=== PATIENT | male | born 1935 | race Caucasian/White ===

== ENCOUNTER 2017-01-08 08:08 | Outpatient (CLI) | payer MEDICARE | END 2017-01-08 08:09 | disposition home or self-care (01) | DX: E11.9 Type 2 diabetes mellitus without complications (principal) ==

== ENCOUNTER 2017-05-28 08:17 | Outpatient (CLI) | payer MEDICARE ==
[2017-05-28 10:44] LABS: ALBUMIN/GLOBULIN RATIO 1.6 (1.0-2.2); BILIRUBIN,TOTAL 0.4 mg/dL (0.2-1.0); BUN - BLOOD UREA NITROGEN 27 mg/dL (6-20); CALCIUM 9.4 mg/dL (8.5-10.3); CARBON DIOXIDE - CO2 26 mmol/L (21-32); CHLORIDE 105 mmol/L (101-111); CHOL/HDL RATIO 5.6 (<5.0); CHOLESTEROL 112 mg/dL; CREATININE 1.3 mg/dL (0.6-1.2); GFR - MDRD 53 (>89); GLUCOSE 116 mg/dL (70-100); HDL CHOLESTEROL 20 mg/dL; LDL/HDL RATIO 2.9 (<3.6); POTASSIUM 4.8 mmol/L (3.5-5.0); SODIUM 137 mmol/L (135-145); TOTAL PROTEIN 6.9 g/dL (6.7-8.2); TRIGLYCERIDES 168 mg/dL; VLDL CHOLESTEROL 34 mg/dL
[2017-05-28 10:53] LABS: HEMOGLOBIN A1C 0.65 g/dL
[2017-05-28 10:56] LABS: PSA FREE < 0.005 ng/mL (0.16-2.81); PSA TOTAL < 0.008 ng/mL (0.000-2.000)
== END 2017-05-28 08:18 | disposition home or self-care (01) ==
LOC: LAB.F 08:17
PROVIDERS: ATTEND Family Medicine
DX: I12.9 Hypertensive chronic kidney disease with stage 1 through stage 4 chronic kidney disease, or unspecified chronic kidney disease (principal); N18.9 Chronic kidney disease, unspecified; I25.10 Atherosclerotic heart disease of native coronary artery without angina pectoris; E11.9 Type 2 diabetes mellitus without complications; E78.5 Hyperlipidemia, unspecified
CPT/HCPCS: 36415; 80053; 80061; 82043; 83036; 84154

== ENCOUNTER 2018-03-20 08:25 | Outpatient (CLI) | payer MEDICARE ==
[2018-03-20 11:13] LABS: ALBUMIN 4.2 g/dL (3.2-5.5); ALBUMIN/GLOBULIN RATIO 1.6 (1.0-2.2); ALKALINE PHOSPHATASE 44 IU/L (42-121); ALT ALANINE AMINOTRANSFERASE 22 IU/L (10-60); AST ASPARTATE AMINOTRANSFERASE 27 IU/L (10-42); BILIRUBIN,TOTAL 0.8 mg/dL (0.2-1.0); BUN - BLOOD UREA NITROGEN 23 mg/dL (6-20); CALCIUM 9.2 mg/dL (8.5-10.3); CARBON DIOXIDE - CO2 27 mmol/L (21-32); CHLORIDE 104 mmol/L (101-111); CHOL/HDL RATIO 5.2 (<5.0); CHOLESTEROL 104 mg/dL; CREATININE 1.2 mg/dL (0.6-1.2); GFR - MDRD 58 (>89); GLUCOSE 112 mg/dL (70-100); HDL CHOLESTEROL 20 mg/dL; LDL CHOLESTEROL,CALCULATED 55 mg/dL; LDL/HDL RATIO 2.8 (<3.6); SODIUM 138 mmol/L (135-145); TOTAL PROTEIN 6.9 g/dL (6.7-8.2); VLDL CHOLESTEROL 29 mg/dL
[2018-03-20 11:22] LABS: HEMOGLOBIN A1C 0.69 g/dL; HEMOGLOBIN A1C % 6.4 % (4.6-6.2)
== END 2018-03-20 08:26 | disposition home or self-care (01) ==
LOC: LAB.F 08:25
PROVIDERS: ATTEND Family Medicine
DX: N18.9 Chronic kidney disease, unspecified (principal); R97.20 Elevated prostate specific antigen [PSA]; I25.10 Atherosclerotic heart disease of native coronary artery without angina pectoris; E11.9 Type 2 diabetes mellitus without complications; I12.9 Hypertensive chronic kidney disease with stage 1 through stage 4 chronic kidney disease, or unspecified chronic kidney disease; E78.5 Hyperlipidemia, unspecified
CPT/HCPCS: 36415; 80053; 80061; 83036; 83721

== ENCOUNTER 2020-06-27 17:17 | Emergency (ER) | payer MEDICARE ==
[2020-06-27] MEDS ORDERED: BACITRACIN ZINC OINT 1 PACKET TOP STA (18:11)
[2020-06-27] MEDS ORDERED: TETANUS/DIPHTHERIA/PERTUSSIS 0.5 ML SYRINGE IM ONE (18:11)
--- NOTE | 2020-06-27 18:13 | ED Physician Documentation ---
PD HPI HEAD INJURY - Stated complaint Stated Complaint: HEAD LAC - Chief complaint Chief Complaint: Wound - History obtained from History obtained from: Patient, Family - History of Present Illness Mechanism of head injury: Blow (hit in the head by an apple tree branch while mowing today.) Where head injury occurred: Home Timing - onset: How many hours ago (1) Pain level max: 1 Pain level now: 1 Location of injury: Top Quality of pain: Pain Associated symptoms: No: LOC, AMS, Amnesia, Nausea / vomiting, Neck pain, Paresthesias, Seizures, Ear drainage, Nasal drainage Symptoms improve with: Rest Symptoms worsen with: Palpation Contributing factors: No: Anticoagulated, Intoxicated Recently seen: Not recently seen - Additional information Additional information: unknown last Td. Review of Systems Constitutional: denies: Fever, Chills Respiratory: denies: Cough GI: denies: Abdominal Pain, Nausea, Vomiting, Diarrhea Musculoskeletal: denies: Neck pain, Back pain Neurologic: denies: Headache PD PAST MEDICAL HISTORY - Past Medical History Cardiovascular: Hypertension, High cholesterol - Allergies Allergies/Adverse Reactions: Allergies Allergy/AdvReac Type Severity Reaction Status Date / Time No Known Drug Allergies Allergy Verified 06/27/20 17:29 - Social History Does the pt smoke?: No Smoking Status: Never smoker Does the pt drink ETOH?: No Does the pt have substance abuse?: No - Immunizations Immunizations are current?: No - POLST Patient has POLST: No PD ED PE NORMAL - Vitals Vital signs reviewed: Yes - General General: Alert and oriented X 3, No acute distress, Well developed/nourished - HEENT HEENT: PERRL, EOMI, Moist mucous membranes, Other (3 cm, curved scalp laceratio n, left frontal portion of the scalp) - Neck Neck: Supple, no meningeal sign, No bony TTP - Cardiac Cardiac: RRR - Respiratory Respiratory: No respiratory distress, Clear bilaterally - Back Back: No spinal TTP - Extremities Extremities: No deformity, Normal ROM s pain - Neuro Neuro: Alert and oriented X 3, lock 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, No motor deficit, No sensory deficit, Normal speech Eye Opening: Spontaneous Motor: Obeys Commands Verbal: Oriented GCS Score: 15 Results - Vitals Vitals: Vital Signs - 24 hr 06/27/20 06/27/20 17:22 18:21 Temperature 36.9 C 36.9 C Heart Rate 64 65 Respiratory 18 16 Rate Blood Pressure 155/75 H 142/78 H O2 Saturation 96 98 Oxygen O2 Source Room air Procedures - Laceration (location) Scalp Length in cm: 3 Wound type: Curved, Superficial Neurovascular status: Sensory intact, Motor intact, Vascular intact Wound Preparation: Irrigated copiously NS Skin layer closure: Jyoti Other: Patient tolerated well, No complications, Neurovascular intact Complexity: Simple, Complex (tdap) PD MEDICAL DECISION MAKING - ED course Complexity details: considered differential, d/w patient ED course: 84-year-old male with a scalp laceration. Repaired with jyoti. Tolerated well. Tdap given. No evidence of intracranial hemorrhage or skull fracture. Not on blood thinners. Warnings of infection and instructions on wound care giv en at bedside. Also counseled on how to minimize scarring. Patient and family counseled regarding signs and symptoms for which I believe and urgent re- evaluation would be necessary. Patient with good understanding of and agreement to plan and is comfortable going home at this time This document was made in part using voice recognition software. While efforts are made to proofread this document, sound alike and grammatical errors may occur. Departure - Departure Disposition: 01 Home, Self Care Clinical Impression: Scalp laceration Qualifiers: Encounter type: initial encounter Qualified Code(s): S01.01XA - Laceration without foreign body of scalp, initial encounter Condition: Good Instructions: ED Laceration Scalp Stitch Or Stap Follow-Up: KRISTIE GAINES MD [Primary Care Provider] - (in 10-14 days for staple removal.) Comments: Keep the wound clean. The jyoti should be removed in approximately 10 to 14 days with your doctor. Return sooner if you notice redness, swelling or drainage from the wound. You were given a tdap today. Discharge Date/Time: 06/27/20 18:22
[2020-06-27 18:22] VITALS: BP 142/78
== END 2020-06-27 18:22 | disposition home or self-care (01) ==
LOC: ED 17:17
DX: S01.01XA Laceration without foreign body of scalp, initial encounter (principal); W22.09XA Striking against other stationary object, initial encounter; Y93.H2 Activity, gardening and landscaping; Y92.007 Garden or yard of unspecified non-institutional (private) residence as the place of occurrence of the external cause; Z23 Encounter for immunization; I10 Essential (primary) hypertension
CPT/HCPCS: 12002; 90471; 90715; 99282; 99283; A9270

== ENCOUNTER 2021-02-25 21:20 | Outpatient (CLI) | payer MEDICARE | END 2021-02-25 21:21 | disposition critical access hospital (66) | LOC: EMS 21:20 | DX: R00.0 Tachycardia, unspecified (principal); R42 Dizziness and giddiness; R61 Generalized hyperhidrosis | CPT/HCPCS: A0425; A0429 ==

== ENCOUNTER 2021-02-25 21:40 | Observation (INO) | payer MEDICARE ==
--- NOTE | 2021-02-25 21:56 | ED Physician Documentation ---
PD HPI CHEST PAIN - Stated complaint Stated Complaint: DIZZY, ELEVATED HEART RATE - Chief complaint Chief Complaint: Cardiac - History obtained from History obtained from: Patient, Family, EMS - History of Present Illness Timing - onset: Today Timing - onset during: Light activity (he states he has been feeling a bit weaker and tired since his 2nd COVID vaccine in January. But today noted feeling of lightheadedness with activity. he went out to gather a roll of wire that he had used for fence and states he almost fainted, falling into the electric fence. Not vertigo per se.) Timing - duration: Days (1) Timing - details: Gradual onset, Waxing and waning Quality: Other (he did not have chest symptoms per se. He did feel somewhat short of breath with activity today. [place] lightheaded getting up again this evening, so called EMS and they noted him to be in rapid atrial fib. No history of atrial fib in the past. States remote history of [place]/stent, prior to 2012.). No: Pressure, Tightness Improved by: Rest Worsened by: Position (standing up and activity) Associated symptoms: Shortness of air, Feeling faint / dizzy, Palpitations. No: Diaphoresis, Nausea, General Weakness Recently seen: Not recently seen Review of Systems Constitutional: reports: Myalgias, Fatigue (for few weeks since COVID vaccine.). denies: Fever, Chills Nose: denies: Rhinorrhea / runny nose, Congestion Throat: denies: Sore throat Cardiac: denies: Chest pain / pressure, Pedal edema, Calf pain Respiratory: denies: Cough, Wheezing GI: denies: Abdominal Pain, Nausea, Vomiting, Diarrhea, Bloody / black stool Musculoskeletal: denies: Extremity swelling Neurologic: reports: Near syncope. denies: Focal weakness, Numbness, Syncope, Altered mental status, Headache PD PAST MEDICAL HISTORY - Past Medical History Past Medical History: Yes Cardiovascular: Hypertension, High cholesterol, Coronary artery disease - Past Surgical History Past Surgical History: Yes Ortho: Knee replacement, Other Cardiovascular: Coronary stent, Cardiac catheterization - Present Medications Home Medications: Ambulatory Orders Medication Instructions Recorded Confirmed Fenofibrate,Micronized 134 mg PO DAILY 02/25/21 02/25/21 [Fenofibrate] Lisinopril [Zestril] 20 mg PO DAILY 02/25/21 02/25/21 Simvastatin [Zocor] 40 mg PO HS 02/25/21 02/25/21 amLODIPine [Norvasc] 5 mg PO DAILY 02/25/21 02/25/21 metFORMIN [Glucophage] 500 mg PO DAILY PM 02/25/21 02/25/21 - Allergies Allergies/Adverse Reactions: Allergies Allergy/AdvReac Type Severity Reaction Status Date / Time No Known Drug Allergies Allergy Verified 02/25/21 21:48 - Living Situation Living Situation: reports: With spouse/s.o. Living Arrangement: reports: At home, Other (still very active and does ranching and yard work.) - Social History Does the pt smoke?: No Smoking Status: Never smoker Does the pt drink ETOH?: No Does the pt have substance abuse?: No - Immunizations Immunizations are current?: No - POLST Patient has POLST: No PD ED PE NORMAL - Vitals Vital signs reviewed: Yes - General General: Alert and oriented X 3, No acute distress, Well developed/nourished - HEENT HEENT: Moist mucous membranes, Pharynx benign - Neck Neck: Supple, no meningeal sign, No adenopathy - Cardiac Cardiac: No murmur. No: RRR (irregular and rapid in 130-140 range. No murmur.) - Respiratory Respiratory: Clear bilaterally - Abdomen Abdomen: Soft, Non tender - Derm Derm: Normal color, Warm and dry - Extremities Extremities: No calf tenderness / cord, Other (1+ mild edema in both ankles. Does not go to knees. No calf tenderness. ) - Neuro Neuro: Alert and oriented X 3, No motor deficit, Normal speech Eye Opening: Spontaneous Motor: Obeys Commands Verbal: Oriented GCS Score: 15 Results - Vitals Vitals: Vital Signs - 24 hr 02/25/21 02/25/21 02/25/21 21:45 22:18 22:47 Temperature 36.8 C Heart Rate 126 H 105 H 101 H Respiratory 198 H 22 18 Rate Blood Pressure 131/93 H 141/95 H 136/94 H O2 Saturation 96 97 95 02/25/21 02/25/21 02/25/21 22:52 22:57 23:00 Temperature 36.5 C Heart Rate 106 H 95 97 Respiratory 13 Rate Blood Pressure 148/73 H 147/74 H 135/85 H O2 Saturation 96 02/25/21 23:12 Temperature Heart Rate 98 Respiratory Rate Blood Pressure 132/72 H O2 Saturation Oxygen O2 Source Room air - EKG (time done) 21:42 Rate: Rate (enter#) (123) Rhythm: Atrial fibrillation [place]: Normal QRS: Normal Ischemia: Normal ST segments. No: ST elevation c/w ischemia, ST depression Compare to prior EKG: Old EKG unavailable - Labs Labs: Laboratory Tests 02/25/21 02/25/21 02/25/21 22:21 22:21 22:21 WBC 11.3 H RBC 4.88 Hgb 13.7 L Hct 42.0 MCV 86.1 MCH 28.1 MCHC 32.6 RDW 14.3 Plt Count 275 MPV 11.1 Neut # (Auto) 7.6 H Lymph # (Auto) 1.8 [place] # (Auto) 1.1 H Eos # (Auto) 0.7 Baso # (Auto) 0.1 Absolute Nucleated RBC 0.00 Nucleated RBC % 0.0 Sodium 132 L Potassium 4.3 Chloride 103 Carbon Dioxide 22 Anion Gap 7.0 BUN 21 H Creatinine 1.4 H Estimated GFR (MDRD) 48 L Glucose 208 H Calcium 8.6 Magnesium Total Bilirubin 0.8 AST 17 ALT 16 Alkaline Phosphatase 63 Troponin I High Sens 6.1 B-Natriuretic Peptide Total Protein 6.3 L Albumin 3.9 Globulin 2.4 Albumin/Globulin Ratio 1.6 Lipase 29 02/25/21 02/25/21 22:21 22:21 WBC RBC Hgb Hct MCV MCH MCHC RDW Plt Count MPV Neut # (Auto) Lymph # (Auto) [place] # (Auto) Eos # (Auto) Baso # (Auto) Absolute Nucleated RBC Nucleated RBC % Sodium Potassium Chloride Carbon Dioxide Anion Gap BUN Creatinine Estimated GFR (MDRD) Glucose Calcium Magnesium 1.8 Total Bilirubin AST ALT Alkaline Phosphatase Troponin I High Sens B-Natriuretic Peptide 87 Total Protein Albumin Globulin Albumin/Globulin Ratio Lipase - Rads (name of study) chest xray Radiology: Prelim report reviewed (no acute process), See rad report PD MEDICAL DECISION MAKING - ED course Complexity details: reviewed results, re-evaluated patient (Heart rate is slowed with diltiazem. Blood pressure is adequate. Still in fib. Not feeling lightheaded while on cart. ), considered differential (The patient describes a mixture of lightheadedness versus some slight dizziness as he was standing up in active today. No chest pain or dyspnea. EMS found him to be in rapid A. fib. No known history of A. fib.), d/w patient Departure - Departure Disposition: ED Place in Observation Clinical Impression: Atrial fibrillation with rapid ventricular response, Postural lightheadedness, New onset atrial fibrillation Condition: Stable Record reviewed to determine appropriate education?: Yes
--- OUTSIDE RECORDS SUMMARY | 2021-02-25 21:59 | EXTERNAL MEDICAL SUMMARY RPT | Continuity of Care Document ---
:1935 Demographics Phone Unavailable Preferred Language Unknown Marital Status Unknown Church Affiliation Unknown Race Unknown Ethnic Group Unknown Author Organization [place] Address [address] [phone] Phone Social History date description facility [phone]
[2021-02-25] MEDS ORDERED: SODIUM CHLORIDE 0.9% 1,000 ML IV STA (22:25)
[2021-02-25] MEDS ORDERED: diltiaZEM INJ 5 MG/ML VIAL IVP STA (22:26)
[2021-02-25 22:27] LABS: BASOPHILS # (AUTO) 0.1 10^3/uL (0.0-0.1); BASOPHILS % (AUTO) 0.7 %; EOSINOPHILS # (AUTO) 0.7 10^3/uL (0.0-0.7); EOSINOPHILS % (AUTO) 6.2 %; HGB - HEMOGLOBIN 13.7 g/dL (14.0-18.0); LYMPHOCYTES # (AUTO) 1.8 10^3/uL (1.5-3.5); MEAN CORPUSCULAR HEMOGLOBIN 28.1 pg (27.0-31.0); MEAN CORPUSCULAR HGB CONC 32.6 g/dL (32.0-36.0); MEAN CORPUSCULAR VOLUME 86.1 fL (80.0-94.0); MEAN PLATELET VOLUME 11.1 fL (7.4-11.4); MONOCYTES # (AUTO) 1.1 10^3/uL (0.0-1.0); MONOCYTES % (AUTO) 9.5 %; NEUTROPHILS # (AUTO) 7.6 10^3/uL (1.5-6.6); NEUTROPHILS % (AUTO) 67.1 %; PLT - PLATELET COUNT 275 10^3/uL (130-450); RED BLOOD COUNT 4.88 10^6/uL (4.70-6.10); RED CELL DISTRIBUTION WIDTH 14.3 % (12.0-15.0); WHITE BLOOD COUNT 11.3 x10^3/uL (4.8-10.8)
[2021-02-25] MEDS ORDERED: MECLIZINE 12.5 MG TABLET PO STA (22:27)
[2021-02-25 22:41] LABS: ALBUMIN 3.9 g/dL (3.2-5.5); ALBUMIN/GLOBULIN RATIO 1.6 (1.0-2.2); BILIRUBIN,TOTAL 0.8 mg/dL (0.2-1.0); CALCIUM 8.6 mg/dL (8.5-10.3); CREATININE 1.4 mg/dL (0.6-1.2); POTASSIUM 4.3 mmol/L (3.5-5.0); TOTAL PROTEIN 6.3 g/dL (6.7-8.2)
[2021-02-25] MEDS ORDERED: ACETAMINOPHEN 325 MG TABLET PO PRN (23:30)
[2021-02-25] MEDS ORDERED: oxyCODONE 5 MG TABLET PO PRN (23:30)
[2021-02-25] MEDS ORDERED: SODIUM CHLORIDE FLUSH 0.9% 10 ML SYRINGE IVP PRN (23:30)
[2021-02-25] MEDS ORDERED: diltiaZEM CD 120 MG CAPSULE PO STA (23:33)
[2021-02-25] MEDS ORDERED: NS W/20 MEQ KCL 1,000 ML IV SCH (23:45)
--- OUTSIDE RECORDS SUMMARY | 2021-02-25 23:45 | EXTERNAL MEDICAL SUMMARY RPT | Continuity of Care Document ---
:1935 Demographics Phone Unavailable Preferred Language Unknown Marital Status Unknown Worship Affiliation Unknown Race Unknown Ethnic Group Unknown Author Organization [place] Address [address] [id number] Phone Social History date description facility [phone]
[2021-02-26 00:58] LABS: B. PARAPERTUSSIS- RESP PCR PAN NOT DETECTED; B. PERTUSSIS- RESP PCR PANEL NOT DETECTED; C. PNEUMONIAE- RESP PCR PANEL NOT DETECTED; CORONAVIRUS 229E-RESP PCR NOT DETECTED; CORONAVIRUS HKU1-RESP PCR NOT DETECTED; CORONAVIRUS NL63-RESP PCR NOT DETECTED; CORONAVIRUS OC43-RESP PCR NOT DETECTED; HUMAN METAPNEUMOVIRUS NOT DETECTED; INFLUENZA A- RESP PCR PANEL NOT DETECTED; INFLUENZA B - RESP PCR PANEL NOT DETECTED; M. PNEUMONIAE- RESP PCR PANEL NOT DETECTED; PARAINFLUENZA VIRUS 1 NOT DETECTED; PARAINFLUENZA VIRUS 2 NOT DETECTED; PARAINFLUENZA VIRUS 3 NOT DETECTED; PARAINFLUENZA VIRUS 4 NOT DETECTED; RHINOVIRUS/ENTEROVIRUS NOT DETECTED; RSV- RESP PCR PANEL NOT DETECTED; SARS-CoV-2 -RESP PCR PANEL NOT DETECTED
--- NOTE | 2021-02-26 00:59 | HISTORY & PHYSICAL EXAMINATION ---
Chief Complaint - Chief Complaint Chief Complaint: Dizziness and light headedness History of Present Illness - Admitted From Admitted From:: Home Via EMS - History Obtained From Records Reviewed: [facility] History obtained from: Patient and Chart Review Exam Limitations: None - History of Present Illness HPI Comment/Other: Pt is a pleasant 85 male who presented the emergency room this evening for light headedness and dizziness. Pt has significant PMH of CAD, STEMI with stent to RCA, CKD stage II, BPH w prostate cancer s/p TURP. Rodolfo tells me after receiving his second COVID vaccine dose two weeks ago he began to have increase generalized weakness and fatigue. This morning he awoke to multiple episodes of dizziness and light headedness with the room spinning. 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 After discussion with his roommate Ivette Isaac and her grandson who is a medic in [place] she called EMS for transport to the ED. On arrival he was found to be in atrial fibrillation with RVR, with HR 130s to 140s. He denies chest px, dyspnea, edema, orthopnea with no recent travel or episodes of prolonged sitting. CXR showed no abnormal findings, non contributory D-Dimer, initial tropinin is negative and TSH level is normal. His most recent EKG is from 2010 from his records in his PCP office (done by Cardiology) and show NSR and he denies any history of atrial fibrillation or heart irregularity in the past. He was given 10mg IVP of Diltizem producing rate control of HR 90-100s. History - Past Medical History Cardiovascular: reports: Hypertension, High cholesterol, Coronary artery disease, [place] (2006 STEMI with Bare metal stent to RCA) Respiratory: reports: None Neuro: reports: None Endocrine/Autoimmune: reports: Type 2 diabetes GI: reports: Colon polyps (Coloscopy in 2008 with hyperplastic polyps) : reports: Benign prostate hypertrophy (with prostate cancer. Desdemona 6-7) HEENT: reports: Chronic hearing loss, Other (cataracts) Psych: reports: None Musculoskeletal: reports: Other (Chronic right knee pain. States has had residual right knee pain s/p R knee replacement in which he fell in the hospital. ) Derm: reports: Other (SCCA with removal, AK and SK) - Past Surgical History General: reports: Colonoscopy Ortho: reports: Knee replacement, ACL reconstruction, Rotator cuff repair (2005), Arthroscopic surgery (12/22 ACL rear and arthroscopic repair), Other Cardiovascular: reports: Coronary stent, Cardiac catheterization Derm: reports: Skin cancer surgery, Other (denies) - Family & Social History Living arrangement: At home, Other (still very active and does ranching and yard work.) Living Situation: With spouse/s.o. Social History Notes: Lives with "Friend" Ivette Isaac. Daughter Ms. Gomez is legal next of kin and lives within 1 mile of [place]. - Substance History Use: Uses substance without health or social issues: NONE Abuse: Recurrent use of substance despite neg consequences: NONE Dependence: Experiences withdrawal or developed tolerances: NONE - POLST Patient has POLST: No Meds/Allgy - Home Medications Home Medications: Ambulatory Orders Medication Instructions Recorded Confirmed Fenofibrate,Micronized 134 mg PO DAILY 02/25/21 02/25/21 [Fenofibrate] Lisinopril [Zestril] 20 mg PO DAILY 02/25/21 02/25/21 Simvastatin [Zocor] 40 mg PO HS 02/25/21 02/25/21 amLODIPine [Norvasc] 5 mg PO DAILY 02/25/21 02/25/21 metFORMIN [Glucophage] 500 mg PO DAILY PM 02/25/21 02/25/21 Apixaban [Eliquis] 2.5 mg PO BID #60 tablet 02/26/21 Metoprolol Succinate [Toprol Xl] 25 mg PO DAILY #30 tablet 02/26/21 - Allergies Allergies/Adverse Reactions: Allergies Allergy/AdvReac Type Severity Reaction Status Date / Time No Known Drug Allergies Allergy Verified 02/25/21 21:48 Review of Systems - Constitutional Constitutional: reports: Fatigue, Weakness, Diaphoresis. denies: Fever, Chills, Malaise, Poor appetite - Eyes Eyes: reports: Corrective lenses - Ears, Nose & Throat Ears, Nose & Throat: reports: Other (Denies) - Cardiovascular Cariovascular: reports: Irregular heart rate, Palpitations, Lightheadedness, Exertional dyspnea, Decr. exercise tolerance. denies: Chest pain, Edema - Respiratory Respiratory: denies: Cough, Sputum production - Gastrointestinal Gastrointestinal: denies: Abdominal pain, Abdominal distention, Constipation, Diarrhea, Change in bowel habits - Genitourinary Genitourinary: reports: Frequency, Nocturia, Other - Musculoskeletal Musculoskeletal: reports: Joint pain (R knee s/p R knee replacement. Chronic pain but states it does no limit mobility of functionality.) - Neurological Neurological: reports: Dizziness. denies: General weakness, Focal weakness, Headache, Numbness - Psychiatric Psychiatric: denies: Depression, Anxiety - Endocrine Endocrine: denies: Polyuria, Polydypsia, Polyphagia - Hematologic/Lymphatic Hematologic/Lymphatic: denies: Anemia, Bruising, Blood clots Prior Level of Functionality: Patients prior to this event has had no limitations in functionality. 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 Exam - Vital Signs Reviewed Vital Signs: Yes Vital Signs: Vital Signs x48h Temp Pulse Resp BP Pulse Ox 02/26/21 00:00 100 18 133/86 H 97 02/25/21 23:42 98 144/93 H 02/25/21 23:30 96 15 129/82 H 95 02/25/21 23:12 98 132/72 H 02/25/21 23:00 36.5 C 97 13 135/85 H 96 02/25/21 22:57 95 147/74 H 02/25/21 22:52 106 H 148/73 H 02/25/21 22:47 101 H 18 136/94 H 95 02/25/21 22:18 105 H 22 141/95 H 97 02/25/21 21:45 36.8 C 126 H 198 H 131/93 H 96 - Physical Exam General Appearance: positive: No acute distress, Alert, Other (Pt is a obese 85 male 5'8" and 83.461kg) Eyes Bilateral: positive: Normal inspection ENT: positive: Other (mild signs of dehydration with dry mucous membranes around mouth.) Neck: positive: No JVD, Other (mandibular lymphodema bilaterally. Firm to touch. Denies px to palpation.) Respiratory: positive: Chest non-tender, No respiratory distress, Breath sounds nml Cardiovascular: positive: Irregularly irregular, Tachycardia, Systolic murmur. negative: Gallop/S4 Peripheral Pulses: positive: 2+ Abdomen: positive: Non-tender, No organomegaly, Nml bowel sounds, No distention Skin: positive: No rash, Warm, Dry, Other (tanned face, arm, neck) Extremities: positive: Non-tender, Full ROM, Nml appearance, Pedal edema (trace) Neurologic/Psychiatric: positive: Oriented x3, CN's nml (2-12) (x slightly deaf), Motor nml, Sensation nml, Mood/affect nml Conclusion/Plan - Problem List (1) Atrial fibrillation with rapid ventricular response Conclusion/Plan: New onset of Afib with RVR. This is new in onset. Troponin is normal. TSH is normal. D-dimer is less than 200. Treated initially with 10mg Dilt with established rate control and given PO dose of cardizem 125mg. Will monitor HR on telemetry over night and manage tachycardia with PRN meds. Eliquis for anticoagulation for [id number] score is 5 points. Suspect pt has been in atrial fibrillation for past two weeks given symptoms. Low risk of PE, [place], or hyperthyroidism considering negative d-dimer, troponin and normal TSH level. Old stress test in 12/21 should normal EF and normal perfusion. Started on Eliquis 2.5mg for anticoagulation, renal adjusted. Started PO rate control with Cardizem 125mg for rate control and BP. Continue other cardiac meds and schedule echo We do no have ECHO or nuc med on the weekends, so he may be able to be discharged in morning if rate is controlled and will need to follow up with th ose studies in the outpatient setting with his PCP/Calculator Operator. (2) HTN (hypertension) Conclusion/Plan: Currently normotensive. Will monitor for changes in BP related to new onset of afib. Continue home BP regimen. If hypertensive in the inpatient setting will consider PRN dosing for HTN. Qualifiers: Hypertension type: essential hypertension Qualified Code(s): I10 - Essential (primary) hypertension (3) Diabetes type 2, controlled Conclusion/Plan: History of DMII managed in the outpatient with Metformin. Elevated BS on admission likely related to stress response. Last A1c documented was 6.4 in March of 2018. Plan to hold metformin in the inpatient setting and will add A1c to get current level. 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 Continue to assessment and hold nephrotoxic drugs as possible. Otherwise continue outpatient treatment. Qualifiers: Chronic kidney disease stage: stage 2 (mild) Qualified Code(s): N18.2 - Chronic kidney disease, stage 2 (mild) (5) Coronary artery disease Conclusion/Plan: Known CAD with history of STEMI. Continue outpatient meds. Current troponin is n ormal. Repeat in am. Qualifiers: Coronary Disease-Associated Artery/Lesion type: [place] artery - Lab Results Lab results reviewed: Yes Fish Bones: 02/25/21 22:21 02/25/21 22:21 - Diagnostic Imaging Results Diagnostic Imaging Results: positive: Final report reviewed - EKG Results EKG Interpreted Independently: No EKG Comparison: Changed from prior EKG (Most recent EKG showed NSR in 2010)
[2021-02-26] MEDS: SODIUM CHLORIDE FLUSH 0.9% 10 ML SYRINGE IVP SCH ×2 (02:01→09:04)
[2021-02-26 06:51] LABS: CALCIUM 8.5 mg/dL (8.5-10.3); CREATININE 1.2 mg/dL (0.6-1.2); POTASSIUM 4.4 mmol/L (3.5-5.0)
--- NOTE | 2021-02-26 07:00 | PHARMACY PROGRESS NOTE ---
- Best Possible Medication History Admit Date and Time: 02/25/21 7745 Processed by: Nursing Medication History completed: Yes Patient Interview: Completed Secondary Source(s): Pharmacy records, Insurance records As the person ultimately responsible for medication therapy, providers are able to order a medication from an existing home medication list in [facility] via the "Reconcile Routine" prior to Confirmation of that medication by it application support analyst. Such practice is discouraged except when the physician, in their clinical judgment, deems that a medical need exists for a medication without regard to previous use.
[2021-02-26 07:12] LABS: ESTIMATED AVERAGE GLUCOSE 160 mg/dL (70-100); HEMOGLOBIN A1c% 7.2 % (4.27-6.07)
--- NOTE | 2021-02-26 07:13 | DISCHARGE SUMMARY ---
Discharge Summary Admit Date: 02/25/21 Discharge Date: 02/26/21 Discharging Provider: Abdirahman Carter Primary Care Provider: Alvaro Jean Baptiste Code Status: Attempt Resuscitation Condition at Discharge: Stable Discharge Disposition: 01 Home, Self Care - DIAGNOSES Admission Diagnoses: Atrial fibrillation with rapid ventricular response Hypertension Diabetes type 2, controlled Chronic kidney disease Coronary artery disease Discharge Diagnoses with Status of Each Condition: Atrial fibrillation with rapid ventricular response: New onset. Rate controlled. Patient discharged on metoprolol and Eliquis Hypertension: Chronic Diabetes type 2, controlled: Chronic Chronic kidney disease Coronary artery disease: Chronic - HPI History of Present Illness: Pt is a pleasant 85 male who presented the emergency room this evening for light headedness and dizziness. Pt has significant PMH of CAD, STEMI with stent to RCA, CKD stage II, BPH w prostate cancer s/p TURP. Rodolfo tells me after receiving his second COVID vaccine dose two weeks ago he began to have increase generalized weakness and fatigue. This morning he awoke to multiple episodes of dizziness and light headedness with the room spinning. 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 After discussion with his roommate Ivette Isaac and her grandson who is a medic in [place] she called EMS for transport to the ED. On arrival he was found to be in atrial fibrillation with RVR, with HR 130s to 140s. He denies chest px, dyspnea, edema, orthopnea with no recent travel or episodes of prolong ed sitting. CXR showed no abnormal findings, non contributory D-Dimer, initial tropinin is negative and TSH level is normal. His most recent EKG is from 2010 from his records in his PCP office (done by Cardiology) and show NSR and he denies any history of atrial fibrillation or heart irregularity in the past. He was given 10mg IVP of Diltizem producing rate control of HR 90-100s. Is also given another dose of diltiazem 125 mg p.o. x1. He was monitored throughout the night. There was no new development or recurrence of rapid ventricular rhythm. He has a Lavelle vas score of 5 points. As a result he was discharged home on metoprolol succinate 25 mg p.o. daily and Eliquis 5 mg p.o. twice daily. He was advised to follow-up with his primary care physician at the earliest available date from discharge for an order or referral for a 2D echocardiogram. The patient expressed understanding and was in agreement with the plan. - ALLERGIES Allergies/Adverse Reactions: Allergies Allergy/AdvReac Type Severity Reaction Status Date / Time No Known Drug Allergies Allergy Verified 02/25/21 21:48 - MEDICATIONS Home Medications: Ambulatory Orders Medication Instructions Recorded Confirmed Fenofibrate,Micronized 134 mg PO DAILY 02/25/21 02/25/21 [Fenofibrate] Lisinopril [Zestril] 20 mg PO DAILY 02/25/21 02/25/21 Simvastatin [Zocor] 40 mg PO HS 02/25/21 02/25/21 amLODIPine [Norvasc] 5 mg PO DAILY 02/25/21 02/25/21 metFORMIN [Glucophage] 500 mg PO DAILY PM 02/25/21 02/25/21 Apixaban [Eliquis] 5 mg PO BID 30 Days #60 tablet 02/26/21 Metoprolol Succinate [Toprol Xl] 25 mg PO DAILY #30 tablet 02/26/21 - PHYSICAL EXAM AT DISCHARGE General Appearance: positive: No acute distress, Alert Eyes Bilateral: positive: PERRL, EOMI ENT: positive: No signs of dehydration Neck: positive: No JVD, Trachea midline Respiratory: positive: Chest non-tender, No respiratory distress, Breath sounds nml. negative: Wheezes, Rales, Rhonchi Cardiovascular: positive: No murmur, Irregularly irregular Abdomen: positive: Non-tender, No organomegaly, Nml bowel sounds, No distention. negative: Guarding, Rebound Skin: positive: Color nml, No rash, Warm, Dry. negative: Cyanosis Extremities: positive: Non-tender, Full ROM, Nml appearance, No pedal edema Neurologic/Psychiatric: positive: Oriented x3, Mood/affect nml - LABS Result Diagrams: 02/25/21 22:21 02/26/21 06:30 - TIME SPENT Time Spent in Discharge (Minutes): 20
--- NOTE | 2021-02-26 07:13 | Discharge Plan ---
Discharge Plan Problem Reviewed?: Yes Disposition: Home, Self Care Condition: Stable Prescriptions: Apixaban [Eliquis] 5 mg PO BID 30 Days #60 tablet Metoprolol Succinate [Toprol Xl] 25 mg PO DAILY #30 tablet Diet: Cardiac Activity Restrictions: Activity as Tolerated Health Concerns: You presented to the ED with complaint of dizziness/ lightheadedness for which work-up showed that you had atrial fibrillation with rapid ventricular response. You were given a dose of diltiazem 10 mg IV in the ED and then diltiazem 125 mg p.o. This controlled your heart rate. You were monitored overnight in the hospital with no new developments or recurrence of your rapid heart rate. You have the CHADS2-VASc score of 5. Thus indication would be to start you on a blood thinner. Eliquis 5 mg p.o. twice daily was ordered. You will also be discharged home with metoprolol succinate 25 mg p.o. daily. You are to follow-up with your primary care physician at the earliest possible date from discharge for an order/referral for a 2D echocardiogram in the outpatient setting. This was explained to you, you expressed understanding and agreeable to the plan. Plan of Treatment: You presented to the ED with complaint of dizziness/ lightheadedness for which work-up showed that you had atrial fibrillation with rapid ventricular response. You were given a dose of diltiazem 10 mg IV in the ED and then diltiazem 125 mg p.o. This controlled your heart rate. You were monitored overnight in the hospital with no new developments or recurrence of your rapid heart rate. You have the CHADS2-VASc score of 5. Thus indication would be to start you on a blood thinner. Eliquis 5 mg p.o. twice daily was ordered. You will also be discharged home with metoprolol succinate 25 mg p.o. daily. You are to follow-up with your primary care physician at the earliest possible date from discharge for an order/referral for a 2D echocardiogram in the outpatient setting. This was explained to you, you expressed understanding and agreeable to the plan. Care Goals: You presented to the ED with complaint of dizziness/ lightheadedness for which work-up showed that you had atrial fibrillation with rapid ventricular response. You were given a dose of diltiazem 10 mg IV in the ED and then diltiazem 125 mg p.o. This controlled your heart rate. You were monitored overnight in the hospital with no new developments or recurrence of your rapid heart rate. You have the CHADS2-VASc score of 5. Thus indication would be to start you on a blood thinner. Eliquis 5 mg p.o. twice daily was ordered. You will also be discharged home with metoprolol succinate 25 mg p.o. daily. You are to follow-up with your primary care physician at the earliest possible date from discharge for an order/referral for a 2D echocardiogram in the outpatient setting. This was explained to you, you expressed understanding and agreeable to the plan. Assessment: You presented to the ED with complaint of dizziness/ lightheadedness for which work-up showed that you had atrial fibrillation with rapid ventricular response. You were given a dose of diltiazem 10 mg IV in the ED and then diltiazem 125 mg p.o. This controlled your heart rate. You were monitored overnight in the hospital with no new developments or recurrence of your rapid heart rate. You have the CHADS2-VASc score of 5. Thus indication would be to start you on a blood thinner. Eliquis 5 mg p.o. twice daily was ordered. You will also be discharged home with metoprolol succinate 25 mg p.o. daily. You are to follow-up with your primary care physician at the earliest possible date from discharge for an order/referral for a 2D echocardiogram in the outpatient setting. This was explained to you, you expressed understanding and agreeable to the plan. No Smoking: If you smoke, Please STOP! Call for help.
[2021-02-26] MEDS ORDERED: METOPROLOL SUCCINATE 25 MG TABLET PO SCH (09:00)
[2021-02-26] MEDS ORDERED: APIXABAN 5 MG TABLET PO SCH (09:00)
--- NOTE | 2021-02-26 10:15 | XRAY Report ---
PROCEDURE: Chest 1 View X-Ray INDICATIONS: Chest pain TECHNIQUE: One view of the chest was acquired. COMPARISON: None FINDINGS: Surgical changes and devices: None. Lungs and pleura: No pleural effusions or pneumothorax. Lungs are clear. Mediastinum: Mediastinal contours appear normal. Heart size is normal. Bones and chest wall: No suspicious bony lesions. Postsurgical changes with anchor in the right hum eral head. Degenerative changes of the acromioclavicular joints. Overlying soft tissues appear unrema rkable. IMPRESSION: No evidence of an acute cardiopulmonary abnormality. Agree with preliminary report. Reviewed by: Bernard Alvarado DO on 02/26/2021 9:13 AM [facility] Approved by: Bernard Alvarado DO on 02/26/2021 9:13 AM [facility] Station ID: [id number]
[2021-02-26 11:23] VITALS: BP 129/77
== END 2021-02-26 13:00 | disposition home or self-care (01) ==
LOC: ED 21:40 → MS2 23:30
PROVIDERS: ADMIT Specialist; ATTEND Internal Medicine
DX: I48.91 Unspecified atrial fibrillation (principal); E11.22 Type 2 diabetes mellitus with diabetic chronic kidney disease; I12.9 Hypertensive chronic kidney disease with stage 1 through stage 4 chronic kidney disease, or unspecified chronic kidney disease; N18.2 Chronic kidney disease, stage 2 (mild); I25.10 Atherosclerotic heart disease of native coronary artery without angina pectoris; I25.2 Old myocardial infarction; Z95.5 Presence of coronary angioplasty implant and graft; N40.0 Benign prostatic hyperplasia without lower urinary tract symptoms; E66.9 Obesity, unspecified; Z68.28 Body mass index [BMI] 28.0-28.9, adult; Z85.46 Personal history of malignant neoplasm of prostate; Z20.822 Contact with and (suspected) exposure to COVID-19
CPT/HCPCS: 36415; 71045; 80048; 80053; 83036; 83690; 83735; 83880; 84443; 84484; 85025; 85379; 87631; 93005; 96365; 96366; 96375; 99284; 99285; A9270; G0378; 0202U

== ENCOUNTER 2023-02-09 08:00 | Outpatient (CLI) | payer MEDICARE ==
--- NOTE | 2023-02-09 19:28 | XRAY Report ---
PROCEDURE: Chest 2 View X-Ray INDICATIONS: COUGH TECHNIQUE: 2 views of the chest were acquired. COMPARISON: 02/25/2021 FINDINGS: Surgical changes and devices: Right shoulder postoperative change can be seen. Lungs and pleura: No pleural effusions or pneumothorax. Lungs are clear. Mediastinum: Mediastinal contours appear normal. Heart size is normal. Bones and chest wall: No suspicious bony lesions. Age-appropriate degenerative changes are seen. O verlying soft tissues appear unremarkable. IMPRESSION: Normal chest for age. Reviewed by: Daniel Dumont MD on 02/09/2023 6:27 PM [facility] Approved by: Daniel Dumont MD on 02/09/2023 6:27 PM [facility] Station ID: [id number]
== END 2023-02-09 23:59 | disposition home or self-care (01) ==
LOC: DI.S 08:00
PROVIDERS: ATTEND Emergency Medicine
DX: R05.8 Other specified cough (principal); R05.9 Cough, unspecified

== ENCOUNTER 2023-02-19 07:00 | Outpatient (CLI) | payer MEDICARE ==
--- NOTE | 2023-02-19 17:18 | XRAY Report ---
PROCEDURE: Chest 2 View X-Ray INDICATIONS: COUGH TECHNIQUE: 2 views of the chest were acquired. COMPARISON: 02/09/2023 and 02/25/2021. FINDINGS: Surgical changes and devices: None. Lungs and pleura: No pleural effusions or pneumothorax. Subtle ill-defined opacities are seen scatte red in bilateral lower lung salas. Mediastinum: Mediastinal contours appear normal. Heart size is normal. Bones and chest wall: No suspicious bony lesions. Overlying soft tissues appear unremarkable. IMPRESSION: Finding is concerning for small bilateral lower lobe infiltrates versus atelectasis. No pleural effus ion or pneumothorax. Reviewed by: King Suh MD on 02/19/2023 5:17 PM PDT Approved by: King Suh MD on 02/19/2023 5:17 PM PDT Station ID: [id number]
== END 2023-02-19 23:59 | disposition home or self-care (01) ==
LOC: DI.S 07:00
PROVIDERS: ATTEND Physician Assistant
DX: R05.9 Cough, unspecified (principal)

== ENCOUNTER 2023-08-17 03:21 | Outpatient (CLI) | payer MEDICARE | END 2023-08-17 23:59 | disposition EMS.NT | LOC: EMS 03:21 | DX: R58 Hemorrhage, not elsewhere classified (principal) ==

== ENCOUNTER 2023-10-25 07:00 | Outpatient (CLI) | payer MEDICARE ==
--- NOTE | 2023-10-25 22:27 | XRAY Report ---
PROCEDURE: Chest 2 View X-Ray INDICATIONS: COUGH TECHNIQUE: 2 views of the chest were acquired. COMPARISON: Chest radiographs 02/19/2023 FINDINGS: Surgical changes and devices: None. Lungs and pleura: No pleural effusions or pneumothorax. Lungs are clear. Mediastinum: Mediastinal contours appear normal. Heart size is normal. Bones and chest wall: No suspicious bony lesions. Overlying soft tissues appear unremarkable. IMPRESSION: No acute cardiopulmonary process. Reviewed by: Duane Nuno MD on 10/25/2023 10:26 PM [facility] Approved by: Duane Nuno MD on 10/25/2023 10:26 PM [facility] Station ID: [id number]
== END 2023-10-25 23:59 | disposition home or self-care (01) ==
LOC: DI.S 07:00
PROVIDERS: ATTEND Registered Nurse
DX: R05.9 Cough, unspecified (principal)

== ENCOUNTER 2023-10-25 08:00 | Outpatient (CLI) | payer MEDICARE | END 2023-10-25 08:01 | disposition home or self-care (01) | LOC: LAB.S 08:00 | PROVIDERS: ATTEND Registered Nurse | DX: R05.9 Cough, unspecified (principal) ==

== ENCOUNTER 2023-10-28 12:00 | Outpatient (CLI) | payer MEDICARE ==
[2023-10-28 12:46] LABS: CREATININE 1.1 mg/dL (0.6-1.3)
--- NOTE | 2023-10-28 14:37 | CT Report ---
PROCEDURE: CHEST W INDICATIONS: ABN CHEST XRAY CONTRAST: 100mL Omni 300 TECHNIQUE: After the administration of intravenous contrast, 1 mm axial images were acquired from the pulmonary apices through the posterior costophrenic angles. Axial 5 mm soft tissue kernel reconstructions were performed as well as 8 mm axial MIP and coronal and sagittal 5 mm reformations. For radiation dose reduction, the following was used: automated exposure control, adjustment of mA and/or kV according to patient size. COMPARISON: Chest radiograph on October 25, 2023. CT abdomen and pelvis on December 06, 2009. FINDINGS: Image quality: Excellent. Lungs and pleura: Middle lobe solid pulmonary nodule measuring 4 mm (3/161). Mediastinum: Heart size is normal. No pericardial effusion. No large vessel abnormality. No mediastin al adenopathy by size criteria. No filling defects in the central pulmonary vasculature. Mild-to-mod erate three-vessel coronary calcifications. Small hiatal hernia. Chest wall and lower neck: Thyroid is unremarkable. No axillary or supraclavicular adenopathy by size . Bones: No aggressive osseous abnormality. No acute fractures. Mild multilevel degenerative changes of the spine. Upper Abdomen: Cholelithiasis without acute cholecystitis. Right interpolar simple cyst. Partially vi sualized small bowel diverticulum, as seen on CT dated December 06, 2009. IMPRESSION: 1.Middle lobe solitary pulmonary nodule measuring 4 mm. Fleischner guidelines: If patient is low risk , no additional follow-up needed. Patient is high risk, consider repeat CT chest in 12 months. 2.[id number]-[id number] three-vessel coronary calcifications. 3.Cholelithiasis without acute cholecystitis. Reviewed by: Donald Loredo MD on 10/28/2023 2:35 PM PST Approved by: Donald Loredo MD on 10/28/2023 2:35 PM PST Station ID: [id number]
[2023-10-28] MEDS ORDERED: iohexoL-300 100 ML VIAL IVP ONE (14:49)
== END 2023-10-28 12:01 | disposition home or self-care (01) ==
LOC: DI 12:00
PROVIDERS: ATTEND Registered Nurse
DX: R91.1 Solitary pulmonary nodule (principal); I25.10 Atherosclerotic heart disease of native coronary artery without angina pectoris; K80.20 Calculus of gallbladder without cholecystitis without obstruction
CPT/HCPCS: 36415; 71260; 82565; Q9967

== ENCOUNTER 2023-11-20 08:00 | Outpatient (CLI) | payer MEDICARE ==
--- NOTE | 2023-11-20 12:51 | XRAY Report ---
PROCEDURE: Cervical Spine 2-3V INDICATIONS: STRAIN OF MUSCLE AT NECK LEVEL TECHNIQUE: 3 view(s) of the cervical spine were acquired. COMPARISON: None. FINDINGS: Bones: No fractures or dislocations to the C7 level. Multilevel disc space narrowing and endplate os teophyte formation, as well as facet hypertrophy. The lateral masses of C1 appear intact on the odont oid view. No suspicious bony lesions. Soft tissues: No prevertebral soft tissue swelling. IMPRESSION: Multilevel degenerative disc and facet disease. No acute fracture. No osseous lesion. If symptoms and/or clinical suspicion for pathology continue, further assessment with repeat plain films , or advanced imaging (e.g., CT, MRI, or bone scan) is recommended for further assessment. Reviewed by: Pillo Nolan MD on 11/20/2023 12:50 PM PST Approved by: Pillo Nolan MD on 11/20/2023 12:50 PM PST Station ID: [id number]
== END 2023-11-20 23:59 | disposition home or self-care (01) ==
LOC: DI.S 08:00
PROVIDERS: ATTEND Physician Assistant
DX: S16.1XXA Strain of muscle, fascia and tendon at neck level, initial encounter (principal); M50.30 Other cervical disc degeneration, unspecified cervical region

== ENCOUNTER 2023-12-18 08:00 | Outpatient (CLI) | payer MEDICARE ==
--- NOTE | 2023-12-18 16:03 | XRAY Report ---
PROCEDURE: Knee 3V LT INDICATIONS: PAIN IN LEFT KNEE TECHNIQUE: 3 views of the knee(s) were acquired. COMPARISON: None. FINDINGS: Bones: No fractures or dislocations. Tricompartmental osteoarthritic changes of the knee with jerica nal spurring and moderate to severe medial joint space narrowing. No suspicious bony lesions. Soft tissues: Small knee joint effusion. No suspicious soft tissue calcifications or masses. Athero sclerotic vascular calcifications. IMPRESSION: 1.No acute bony abnormality. 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 2.Prominent soft tissue swelling anterior to the patella, may represent bursitis. Reviewed by: Ravin Lucio MD on 12/18/2023 4:02 PM PST Approved by: Ravin Lucio MD on 12/18/2023 4:02 PM PST Station ID: [id number]
== END 2023-12-18 23:59 | disposition home or self-care (01) ==
LOC: DI.S 08:00
PROVIDERS: ATTEND Registered Nurse
DX: M25.462 Effusion, left knee (principal); M17.12 Unilateral primary osteoarthritis, left knee

== ENCOUNTER 2024-03-12 07:26 | Outpatient (CLI) | payer MEDICARE ==
[2024-03-12 15:43] LABS: ALBUMIN/GLOBULIN RATIO 1.7 (1.0-2.2); ALKALINE PHOSPHATASE 76 IU/L (42-121); ALT ALANINE AMINOTRANSFERASE 15 IU/L (10-60); AST ASPARTATE AMINOTRANSFERASE 16 IU/L (10-42); BILIRUBIN,TOTAL 0.4 mg/dL (0.2-1.0); BUN - BLOOD UREA NITROGEN 20 mg/dL (6-20); CALCIUM 9.7 mg/dL (8.5-10.3); CARBON DIOXIDE - CO2 26 mmol/L (21-32); CHLORIDE 106 mmol/L (101-111); CHOL/HDL RATIO 4.8 (<5.0); CHOLESTEROL 110 mg/dL; CREATININE 1.2 mg/dL (0.6-1.3); GFR - MDRD 57 (>89); GLUCOSE 131 mg/dL (74-104); HDL CHOLESTEROL 23 mg/dL; LDL CHOLESTEROL,CALCULATED 40 mg/dL; LDL/HDL RATIO 1.7 (<3.6); POTASSIUM 4.7 mmol/L (3.5-4.5); SODIUM 136 mmol/L (135-145); TOTAL PROTEIN 6.3 g/dL (6.4-8.9); TRIGLYCERIDES 236 mg/dL (48-352); VLDL CHOLESTEROL 47 mg/dL
[2024-03-12 20:40] LABS: ESTIMATED AVERAGE GLUCOSE 157 mg/dL (70-100); HEMOGLOBIN A1c% 7.1 % (4.27-6.07)
== END 2024-03-12 07:27 | disposition home or self-care (01) ==
LOC: LAB.S 07:26
PROVIDERS: ATTEND Internal Medicine Nephrology
DX: N18.31 Chronic kidney disease, stage 3a (principal); E11.3299 Type 2 diabetes mellitus with mild nonproliferative diabetic retinopathy without macular edema, unspecified eye
CPT/HCPCS: 36415; 80053; 80061; 83036; 83721

== ENCOUNTER 2024-05-21 06:31 | Day surgery (SDC) | payer MEDICARE ==
[2024-05-21] MEDS: CYCLOPENTOLATE 1% OPHTH DROPS 2 ML ONE (06:45)
[2024-05-21] MEDS: KETOROLAC 0.45% OPHTH DROPS ONE (06:45)
[2024-05-21] MEDS: PROPARACAINE 0.5% OPHTH DROPS 15 ML ONE (06:45)
[2024-05-21] MEDS: PHENYLEPHRINE 2.5% OPHTH 2 ML DROPS ONE (06:45)
[2024-05-21] MEDS: LACTATED RINGERS 1,000 ML IV ONE ×2 (06:46→08:01)
[2024-05-21] MEDS ORDERED: BRIMONIDINE 0.2% OPHTH DROPS 5 ML ONE (07:04)
[2024-05-21] MEDS ORDERED: TRIAMCIN/MOXIFLOX OPHTHALMIC 0.6 ML VIAL IO ONE (07:04)
[2024-05-21] MEDS ORDERED: BSS/LIDOCAINE/EPINEPHRINE 1 ML VIAL ONE (07:04)
[2024-05-21] MEDS ORDERED: EPINEPHrine 1 MG/ML AMP ONE (07:04)
[2024-05-21] MEDS ORDERED: TIMOLOL 0.5% OPHTH DROPS ONE (07:04)
[2024-05-21] MEDS: BRIMONIDINE 0.2% OPHTH DROPS 5 ML OPTH ONE ×2 (07:17→07:27)
[2024-05-21] MEDS: TIMOLOL 0.5% OPHTH DROPS OPTH ONE ×2 (07:18→07:28)
[2024-05-21] MEDS: EPINEPHrine 1 MG/ML AMP IR ONE ×2 (07:18→07:28)
[2024-05-21] MEDS: PROPARACAINE 0.5% OPHTH DROPS 15 ML EACHEYE ONE ×2 (07:19→07:29)
[2024-05-21] MEDS: BSS/LIDOCAINE/EPINEPHRINE 1 ML SYRINGE IO ONE ×2 (07:19→07:29)
[2024-05-21] MEDS: TRIAMCIN/MOXIFLOX OPHTHALMIC 0.6 ML VIAL IO ONE ×2 (07:19→07:29)
[2024-05-21] MEDS ORDERED: MIDAZOLAM 2 MG/2 ML VIAL ONE (07:21)
[2024-05-21] MEDS: VANCOMYCIN OPHTH (TOPICAL) 10 MG/ML SYRINGE TOP ONE ×2 (07:22→07:29)
--- NOTE | 2024-05-21 07:26 | ANESTHESIA ---
Pre-Anesthesia VS, & Labs - Diagnosis R eye cataract - Procedure R PhacoIOL Vital Signs: Temp Pulse Resp BP Pulse Ox O2 Flow Rate 36.2 C L 53 L 14 139/62 H 100 05/21/24 06:47 05/21/24 06:47 05/21/24 06:47 05/21/24 06:47 05/21/24 06:47 Height: 5 ft 8 in Weight (kg): 79 kg Body Mass Index: 26.4 BMI Classification: Overweight - NPO >8 hours - Lab Results Current Lab Results: Laboratory Tests 05/21/24 06:54: POC Whole Bld Glucose 124 H Home Medications and Allergies Home Medications: Ambulatory Orders Atorvastatin Calcium 40 mg PO HS 05/21/24 Fenofibrate,Micronized [Fenofibrate] 134 mg PO DAILY 02/25/21 Lisinopril [Zestril] 20 mg PO DAILY 02/25/21 amLODIPine [Norvasc] 5 mg PO DAILY 02/25/21 metFORMIN [Glucophage] 500 mg PO DAILY PM 02/25/21 Atorvastatin Calcium 40 mg PO HS 05/21/24 Allergies/Adverse Reactions: Allergies Allergy/AdvReac Type Severity Reaction Status Date / Time No Known Drug Allergies Allergy Verified 02/25/21 21:48 Anes History & Medical History - Anesthetic History Anesthesia Complications: reports: No previous complications Family history of Anesthesia Complications: Denies Family history of Malignant Hyperthermia: Denies - Medical History Cardiovascular: reports: Hypertension, High cholesterol, Coronary artery disease, [place], Atrial fibrillation (hx of AFIB, currently NSR) Pulmonary: reports: None Gastrointestinal: reports: Colon polyps Urinary: reports: Benign prostate hypertrophy Neuro: reports: None Musculoskeletal: reports: Other Endocrine/Autoimmune: reports: Type 2 diabetes Blood Disorders: reports: None Skin: reports: Other Smoking Status: Never smoker - Surgical History General: reports: Colonoscopy Cardiothoracic: reports: Coronary stent, Cardiac catheterization Urologic: reports: Prostatic surgery Orthopedic: reports: Knee replacement, ACL reconstruction, Rotator cuff repair, Arthroscopic surgery, Other Dermatologic: reports: Skin cancer surgery, Other Exam General: Alert, Oriented x3, Cooperative Dental: Dentures full Upper, Dentures full Lower Mouth Openin Fingerbreadth Neck Mobility: Normal Mallampati classification: II Thyromental Distance: 4-6 cm Respiratory: Lungs clear Cardiovascular: Regular rate Plan Anesthesia Type: MAC Consent for Procedure(s) Verified and Reviewed: Yes Code Status: Attempt Resuscitation ASA classification: 3-Severe systemic disease Is this case an emergency?: No
--- NOTE | 2024-05-21 08:15 | OPERATIVE REPORT ---
Operative Report - Other Other Information/Narrative: Date of Surgery: 05/21/24 Preop Dx: Visually significant cataract right eye. This was the first cataract surgery. Postop Dx: Same Procedure: Phacoemulsification with posterior chamber intraocular lens implant right eye Surgeon: Dr. Jose Duvall Anesthesia: Monitored anesthesia care Complications: None Operative Indications: This is a 88-year-old M with progressive vision loss in the right eye due to 3-4+ nuclear sclerotic and 2-3+ cortical cataract. Best corrected visual acuity was 20/50 with glare to 20/80 vision in the right eye. Indications for surgery were: - Overall decrease in vision - Difficulty seeing words on a computer screen - Difficulty reading - Difficulty seeing words, closed captions, or game scores on TV - Difficulty driving in low light or at night - Difficulty driving at night because of headlights from other vehicles The patient was consented at length concerning the risks and benefits of cataract surgery after which the patient expressed a desire to proceed with surgery. Operative Procedure: The patient was taken into OR#3 and placed under monitored anesthesia care. A surgical time-out was conducted confirming correct patient, correct procedure, and correct surgical site. The patient was given topical anesthesia and then prepped and draped in the usual sterile fashion. The eye was entered at the 6 and 3 oclock positions. Intracameral Shugarcaine was injected into the anterior chamber followed by a dispersive viscoelastic. A continuous-tear curvilinear capsulorhexis was performed. The nucleus was hydrodissected and phacoemulsified. The cortex was evacuated using automated infusion and aspiration. A cohesive viscoelastic was injected into the capsular bag and a 21.5 diopter intraocular lens was inserted into the bag. Infusion and aspiration were used to evacuate the viscoelastic materials from the eye. The wounds were hydrated and the eye inflated to physiologic pressure using balanced salt solution. Approximately 0.25ml of a mixture of triamcinolone and moxifloxacin was injected trans-sclerally into the vitreous in the inferotemporal quadrant using a 30 gauge cannula. An additional 0.25ml of a mixture of triamcinolone and moxifloxacin was injected subconjunctivally in the superior quadrant for infection and inflammation prophylaxis. Wound integrity was checked with Weck-Glenys sponges and found to be leaking. Two 10-0 nylon sutures were placed across the wound to stop the leak. The patient was taken from the operating room in good condition and given post-op instructions.
[2024-05-21 08:20] VITALS: BP 124/58; O2SAT 94
--- NOTE | 2024-05-21 11:02 | ANESTHESIA POST OP EVALUATION ---
Anesthesia Post Eval - Post Anesthesia Eval Vitals: Last Vital Signs Temp 36.9 C 05/21/24 08:01 Pulse 50 L 05/21/24 08:15 Resp 22 05/21/24 08:15 BP 124/58 L 05/21/24 08:15 Pulse Ox 94 05/21/24 08:15 O2 Flow Rate CV Function Including HR & BP: Stable Pain Control: Satisfactory Nausea & Vomiting: Negative Mental Status: Baseline Respiratory Status: Airway Patent Hydration Status: Satisfactory Anesthesia Complications: None
== END 2024-05-21 06:32 | disposition home or self-care (01) ==
LOC: SDS 06:31
PROVIDERS: ATTEND Ophthalmology
DX: E11.36 Type 2 diabetes mellitus with diabetic cataract (principal); H25.811 Combined forms of age-related cataract, right eye; I10 Essential (primary) hypertension; Z95.5 Presence of coronary angioplasty implant and graft; Z79.01 Long term (current) use of anticoagulants; Z79.84 Long term (current) use of oral hypoglycemic drugs; I25.2 Old myocardial infarction; I25.10 Atherosclerotic heart disease of native coronary artery without angina pectoris
CPT/HCPCS: 66984; A9270; J3490; J7120

== ENCOUNTER 2024-07-10 07:06 | Outpatient (CLI) | payer MEDICARE ==
[2024-07-10 16:05] LABS: CHOLESTEROL 108 mg/dL; HDL CHOLESTEROL 27 mg/dL; LDL CHOLESTEROL,CALCULATED 46 mg/dL; LDL/HDL RATIO 1.7 (<3.6); TRIGLYCERIDES 173 mg/dL; VLDL CHOLESTEROL 35 mg/dL
== END 2024-07-10 07:07 | disposition home or self-care (01) ==
LOC: LAB.S 07:06
PROVIDERS: ATTEND Internal Medicine Cardiovascular Disease
DX: E78.5 Hyperlipidemia, unspecified (principal)
CPT/HCPCS: 36415; 80061; 83721